=== PATIENT | male | born 1950 | race Caucasian/White ===

== ENCOUNTER 2018-09-05 11:40 | Emergency (ER) | payer MEDICARE, MEDICAID ==
[~2018-09-05] VITALS: Ht 162.6 cm; Wt 78.7 kg
[2018-09-05 11:46] VITALS: BP 167/93; PULSE 83; RESP 18; Ht 162.6 cm; Wt 78.7 kg
--- NOTE | 2018-09-05 14:29 | ERD ---
ER Documentation Chief Complaint Chief Complaint painful swollen lump rt side neck x2 days, generalize body aches HPI 68-year-old male with no significant past medical history presents for right neck painful lump x2 days. Also states she has some generalized body aches and weakness. The lump is noted to be mildly tender to touch. Denies any fevers or chills. Denies any weight loss. He did have flulike symptoms couple weeks ago. Denies chest pain or shortness of breath. Denies abdominal pain, nausea, vomiting. No other modifying factors noted. No treatments tried at home. No medications taken at home. ROS All systems reviewed and are negative except as per history of present illness. Allergies Allergies: Coded Allergies: No Known Allergy (Unverified , 09/05/18) PMhx/Soc Medical and Surgical Hx: pt denies Medical Hx History of Surgery: Yes (Right knee surgery for tendon repair) Hx Alcohol Use: No Hx Substance Use: No Hx Tobacco Use: No FmHx Family History: No coronary disease Physical Exam Vitals Vital Signs Date Temp Pulse Resp B/P (MAP) Pulse Ox O2 O2 Flow FiO2 Time Delivery Rate 09/05/18 97.1 83 18 167/93 96 11:46 (117) Physical Exam Const: No acute distress Head: Atraumatic Eyes: Normal Conjunctiva ENT: Normal External Ears, Nose and Mouth. Neck: Full range of motion. No meningismus. There is a 1 cm mobile mass noted over the right side of the neck, there is another 0.5 cm mass noted over the posterior occiput on the right side. Also mobile, mildly tender to palpation Resp: Clear to auscultation bilaterally Cardio: Regular rate and rhythm, no murmurs Abd: Soft, non tender, non distended. Normal bowel sounds Skin: No petechiae or rashes Back: No midline or flank tenderness Ext: No cyanosis, or edema Neur: Awake and alert Psych: Normal Mood and Affect Result Diagram: 09/05/18 1301 09/05/18 1301 Results 24 hrs Laboratory Tests Test 09/05/18 13:01 White Blood Count 8.5 10^3/ul Red Blood Count 5.54 10^6/ul Hemoglobin 15.1 g/dl Hematocrit 46.9 % Mean Corpuscular Volume 84.7 fl Mean Corpuscular Hemoglobin 27.3 pg Mean Corpuscular Hemoglobin Concent 32.2 g/dl Red Cell Distribution Width 13.1 % Platelet Count 267 10^3/UL Mean Platelet Volume 9.9 fl Immature Granulocytes % 0.200 % Neutrophils % 50.2 % Lymphocytes % 28.7 % Monocytes % 14.3 % Eosinophils % 5.4 % Basophils % 1.2 % Nucleated Red Blood Cells % 0.0 /100WBC Immature Granulocytes # 0.020 10^3/ul Neutrophils # 4.3 10^3/ul Lymphocytes # 2.4 10^3/ul Monocytes # 1.2 10^3/ul Eosinophils # 0.5 10^3/ul Basophils # 0.1 10^3/ul Nucleated Red Blood Cells # 0.0 10^3/ul Sodium Level 141 mmol/L Potassium Level 4.9 mmol/L Chloride Level 103 mmol/L Carbon Dioxide Level 26 mmol/L Anion Gap 12 Blood Urea Nitrogen 22 mg/dl Creatinine 1.05 mg/dl Est Glomerular Filtrat Rate mL/min > 60 mL/min Glucose Level 95 mg/dl Calcium Level 9.4 mg/dl Total Bilirubin 0.6 mg/dl Direct Bilirubin 0.00 mg/dl Indirect Bilirubin 0.6 mg/dl Aspartate Amino Transf (AST/SGOT) 56 IU/L Alanine Aminotransferase (ALT/SGPT) 56 IU/L Alkaline Phosphatase 157 IU/L Total Protein 8.7 g/dl Albumin 4.4 g/dl Globulin 4.30 g/dl Albumin/Globulin Ratio 1.02 Procedures/MDM Medical Decision Making: Patient presents for neck mass over the right side of his neck. The mass is been present for 2 days. Patient appeared well on physical exam. Physical exam reveals a 1 cm and 0.5 cm mobile mass with some tenderness palpation, is nonfluctuant. There is no surrounding erythema of the skin. ED course: Physical examination consistent with lymphadenopathy EKG: Rate/Rhythm: Normal Sinus Rhythm QRS, ST, T-waves: No changes consistent w/ acute ischemia Impression: No evidence of ischemia or arrhythmia Patient advised to monitor the nodule and follow with primary care physician if it does not resolve in the next couple weeks. Patient advised to follow up with PCP in 1-2 days. Patient advised to return to ED for new or worsening symptoms. Patient stable on discharge from the ED. Disclaimer: Inadvertent spelling and grammatical errors are likely due to EHR/dictation software use and do not reflect on the overall quality of patient care. Also, please note that the electronic time recorded on this note does not necessarily reflect the actual time of the patient encounter. Departure Diagnosis: Primary Impression: Neck nodule Condition: Fair Patient Instructions: Cervical Adenitis, No Antibiotic, Lymphangitis Additional Instructions: Llame al doctor MAANA y magan vee APRYL PARA DENTRO DE 1-2 SOTO.Dgale a la secretaria que nosotros le instruimos hacer esta apryl.Avise o llame si del real condicin se empeora antes de la apryl. Regresa aqui si peor o no mejor. EKG showed sinus rhythm with occasional PVCs, heart rate 76 YARITZA KENNEY DO Sep 05, 2018 14:29
== END 2018-09-05 14:26 | disposition home or self-care (01) ==
LOC: E/R 11:40
DX: R22.1 Localized swelling, mass and lump, neck (principal); M54.2 Cervicalgia
CPT/HCPCS: 80053; 85025; 93005